=== PATIENT | male | born 1990 | race Caucasian/White ===

== ENCOUNTER 2023-02-23 17:48 | Emergency (ER) | payer OTHER ==
[2023-02-23 19:24] LABS: ESTIMATED GFR 83 mL/min (>60)
[2023-02-23 20:57] LABS: CORONAVIRUS COVID-19 NAA NEGATIVE (NEGATIVE)
[2023-02-23] MEDS ORDERED: LORazepam 1 MG Tab PO PRN (23:41)
== END 2023-02-24 14:00 ==
LOC: JP.ED 17:48
DX: F39 Unspecified mood [affective] disorder (principal); F15.10 Other stimulant abuse, uncomplicated; R45.851 Suicidal ideations; Z88.8 Allergy status to other drugs, medicaments and biological substances; Z72.0 Tobacco use; Z20.822 Contact with and (suspected) exposure to COVID-19
CPT/HCPCS: 0241U; 36415; 80053; 80305; 80307; 85025; 99285; A9270